=== PATIENT | male | born 1950 | race Two or more races ===

== ENCOUNTER 2020-11-05 05:29 | Day surgery (SDC) | payer OTHER ==
[2020-11-05] MEDS ORDERED: ASA325 M1 PO (10:44)
[2020-11-05] MEDS ORDERED: ULTRACET PO (10:44)
[2020-11-05] MEDS ORDERED: DUI500 PO (10:44)
== END 2020-11-05 16:30 | disposition home or self-care (01) ==
LOC: CIR.AMB 05:29
PROVIDERS: ATTEND Orthopaedic Surgery
DX: S83.232A Complex tear of medial meniscus, current injury, left knee, initial encounter (principal); M67.362 Transient synovitis, left knee; M94.262 Chondromalacia, left knee; M23.42 Loose body in knee, left knee; Z20.822 Contact with and (suspected) exposure to COVID-19